=== PATIENT | female | born 1945 | race Caucasian/White ===

== ENCOUNTER → 2023-07-18 14:48 | Outpatient (REF) | payer MEDICARE, BC, SELFPAY | LOC: DHCBC MAIN 14:48 | PROVIDERS: ATTENDING PHYSICIAN Nurse Practitioner; FAMILY PHYSICIAN Family Medicine | DX: R07.89 Other chest pain (principal); I48.0 Paroxysmal atrial fibrillation; I34.0 Nonrheumatic mitral (valve) insufficiency | CPT/HCPCS: 93306 ==

== ENCOUNTER → 2023-07-20 15:49 | Outpatient (REF) | payer MEDICARE, BC, SELFPAY | LOC: RAD 15:49 | PROVIDERS: ATTENDING PHYSICIAN Family Medicine | DX: R07.81 Pleurodynia (principal) | CPT/HCPCS: 71101 ==

== ENCOUNTER → 2023-08-29 08:47 | Outpatient (REF) | payer BC, MEDICARE, SELFPAY | LOC: DHCBC/DCA 08:47 | PROVIDERS: ATTENDING PHYSICIAN Nurse Practitioner; FAMILY PHYSICIAN Family Medicine | DX: R07.89 Other chest pain (principal); I48.0 Paroxysmal atrial fibrillation; I34.0 Nonrheumatic mitral (valve) insufficiency | CPT/HCPCS: 78452; 93017; A9500; J2785 ==

== ENCOUNTER → 2024-04-12 12:37 | Outpatient (REF) | payer MEDICARE, BC, SELFPAY | LOC: REG 12:37 | PROVIDERS: ATTENDING PHYSICIAN Family Medicine | DX: R19.7 Diarrhea, unspecified (principal) | CPT/HCPCS: 87045; 87046; 87324; 87328; 87329; 87427; 87449 ==

== ENCOUNTER → 2025-01-14 14:30 | Outpatient (REF) | payer MEDICARE, BC, SELFPAY | LOC: WDC 14:30 | PROVIDERS: ATTENDING PHYSICIAN Family Medicine | DX: M81.0 Age-related osteoporosis without current pathological fracture (principal); Z12.31 Encounter for screening mammogram for malignant neoplasm of breast | CPT/HCPCS: 77063; 77067; 77080 ==

== ENCOUNTER → 2025-03-05 09:50 | Outpatient (REF) | payer MEDICARE, BC, SELFPAY ==
[2025-03-05 11:30] LABS: Hematocrit 41.6 % (37.0-47.0); Hemoglobin 13.6 g/dL (12.0-16.0); Mean Corp Hgb Conc. 32.7 g/dL (33.0-37.0); Mean Corpuscular Volume 95.6 fL (81.0-99.0); Nucleated Red Blood Cells % 0 %; Platelet Count 164 10^3/uL (130-400); Red Cell Dist. Width 14.3 % (11.5-14.5)
[2025-03-05 13:32] LABS: ALT (SGPT) 22 U/L (0-35); AST (SGOT) 21 U/L (14-36); Albumin 4.2 g/dl (3.5-5.0); Alkaline Phosphatase 55 U/L (38-126); Blood Urea Nitrogen 12 mg/dl (7-17); Calcium 8.9 mg/dl (8.4-10.2); Carbon Dioxide 25 mmol/L (22-30); Chloride 105 mmol/L (98-107); Glucose 93 mg/dl (70-99); HDL Cholesterol 73 mg/dl; LDL Cholesterol, Calculated 58 mg/dl; Potassium 4.1 mmol/L (3.5-5.1); Sodium 137 mmol/L (135-145); Total Protein 6.6 g/dl (6.3-8.2); Very Low Density Lipoprotein 17 mg/dl (0-30); eGFR > 60.00
[2025-03-05 13:47] LABS: Glycohemoglobin (HgbA1c) 5.2 % (4.0-5.6)
[2025-03-05 14:15] LABS: Folate 6.0 ng/ml (2.76-20); Vitamin B12 559 pg/ml (239-931)
[2025-03-07 11:37] LABS: Syphilis/T. pallidum Ab Reflex Negative (Negative)
== END ==
LOC: REG 09:50
PROVIDERS: ATTENDING PHYSICIAN Student in an Organized Health Care Education/Training Program; FAMILY PHYSICIAN Family Medicine; OTHER PHYSICIAN Student in an Organized Health Care Education/Training Program
DX: M43.17 Spondylolisthesis, lumbosacral region (principal); J44.9 Chronic obstructive pulmonary disease, unspecified; R29.6 Repeated falls; R41.3 Other amnesia; R27.8 Other lack of coordination; E78.2 Mixed hyperlipidemia; Z79.899 Other long term (current) drug therapy; E55.9 Vitamin D deficiency, unspecified
CPT/HCPCS: 36415; 72082; 80053; 80061; 82164; 82607; 82652; 82746; 83036; 83921; 84155; 84165; 84425; 84443; 85025; 86038; 86780; 87389